=== PATIENT | male | born 1975 | race Caucasian/White ===

== ENCOUNTER 2024-08-23 06:42 | Day surgery (SDC) | payer BC ==
[2024-08-23] MEDS ORDERED: Ketamine 500 mg/10 ML MDV IV ONE (06:43)
[2024-08-23] MEDS ORDERED: Propofol 200 MG/20 ML SDV IV ONE (06:43)
[2024-08-23] MEDS ORDERED: Midazolam 1 MG/ML 2 ML SDV IV ONE (06:43)
[2024-08-23] MEDS ORDERED: Glycopyrrolate 0.2 MG/ML 5 ML MDV IV ONE (06:43)
[2024-08-23] MEDS ORDERED: Sodium Chloride 0.9% 10 ML Syringe FLUSH PRN (06:45)
[2024-08-23] MEDS: Lactated Ringers 1,000 ML IV SCH (07:30)
[2024-08-23] MEDS: Simethicone Drops 40 MG/0.6 ML 30 ML Bottle ONE (07:52)
== END 2024-08-23 09:58 | disposition home or self-care (01) ==
LOC: FB.SDS 06:42
PROVIDERS: ATTEND Surgery
DX: Z12.11 Encounter for screening for malignant neoplasm of colon (principal); D12.6 Benign neoplasm of colon, unspecified; K63.5 Polyp of colon; K57.30 Diverticulosis of large intestine without perforation or abscess without bleeding; F17.210 Nicotine dependence, cigarettes, uncomplicated; F17.220 Nicotine dependence, chewing tobacco, uncomplicated; Z88.5 Allergy status to narcotic agent; Z80.0 Family history of malignant neoplasm of digestive organs
CPT/HCPCS: 00811; 45381; 45384; 45385; 88305; A9270; J1596; J2250; J2704; J3490; J7120